=== PATIENT | female | born 1985 ===

== ENCOUNTER 2023-11-25 17:27 | Emergency (ER) | payer OTHER ==
[~2023-11-25] VITALS: Ht 152.4 cm; Wt 53.0 kg
[2023-11-25 17:54] LABS: COVID AG,FIA SOURCE NASAL SWAB
[2023-11-25 18:31] LABS: ANION GAP 11 mmol/L (8-16); CALCIUM, TOTAL 9.4 mg/dL (8.8-10.5); CARBON DIOXIDE 27 mmol/L (22-29); CHLORIDE 99 mmol/L (98-107); CREATININE 0.68 mg/dL (0.60-1.30); GLOMERULAR FILTR. RATE CALC > 60 mL/min (>60); GLUCOSE,RANDOM 109 mg/dL (70-110); POTASSIUM 3.8 mmol/L (3.5-5.1); SODIUM SERUM 137 mmol/L (136-145); UREA NITROGEN, BLOOD 8 mg/dL (7-18)
[2023-11-25 18:42] LABS: HCG,QUANTITATIVE 1 mIU/mL (0-6)
[2023-11-25 19:18] LABS: INFLUENZA TYPE A NEGATIVE FOR TYPE A (NEGATIVE); INFLUENZA TYPE B NEGATIVE FOR TYPE B (NEGATIVE)
[2023-11-25 19:30] LABS: SARS-COV2 (COVID) ANTIGEN,FIA Positive (Negative)
[2023-11-25] MEDS ORDERED: IBUPROFEN 600 MG TABLET PO ONE (19:30)
[2023-11-25 19:47] LABS: BASOPHILS % (AUTO) 0.2 % (0.0-2.0); EOSINOPHILS % (AUTO) 0.1 % (1.0-6.0); HEMATOCRIT 40.1 % (36-46); HEMOGLOBIN 13.2 g/dL (12.0-16.0); LYMPHOCYTES # (AUTO) 0.8 K/uL (1.0-4.8); LYMPHOCYTES % (AUTO) 9.6 % (22.0-44.0); MEAN CORPUSCULAR HEMOGLOBIN 28.6 pg (26.0-34.0); MEAN CORPUSCULAR HGB CONC 32.9 G/dL (31.0-37.0); MEAN CORPUSCULAR VOLUME 87 fL (80-100); MONOCYTES # (AUTO) 0.6 K/uL (0.1-1.0); MONOCYTES % (AUTO) 7.5 % (2.0-9.0); NEUTROPHILS # (AUTO) 7.1 K/uL (1.8-7.7); NEUTROPHILS % (AUTO) 82.6 % (40.0-70.0); PLATELET COUNT (AUTO) 299 K/uL (150-450); RED BLOOD CELL COUNT(AUTO) 4.61 MIL/uL (4.00-5.20); RED CELL DISTRIBUTION WIDTH 13.5 % (11.5-14.5); WHITE BLOOD COUNT (AUTO) 8.6 K/uL (4.5-11.0)
[2023-11-25] MEDS: ACETAMINOPHEN 1000 MG/ISO-OSM 100 ML IV ONE (20:09)
[2023-11-25] MEDS: ONDANSETRON HCL 4 MG/2 ML VIAL IVP ONE (20:09)
[2023-11-25] MEDS: SODIUM CHLORIDE 0.9% 1,000 ML IV ONE (20:10)
[2023-11-25] MEDS ORDERED: NIRM1TAB10 PO (21:45)
[2023-11-25 22:34] VITALS: BP 110/68; PULSE 69; RESP 20; TEMP 98.3
== END 2023-11-26 02:01 | disposition home or self-care (01) ==
LOC: EMS 17:27
DX: U07.1 COVID-19 (principal); Z98.890 Other specified postprocedural states
CPT/HCPCS: 99284; 96365; 96375; 87426; 80048; 84702; 85025; 87804; 36415; J2405; J7030; J0131